=== PATIENT | female | born 1945 | race Caucasian/White ===

== ENCOUNTER 2018-07-06 09:55 | Day surgery (SDC) | payer OTHER ==
[2018-07-02 12:27] VITALS: BMI 48.3
[2018-07-06] MEDS ORDERED: PROPOFOL 20 ML ONE ×2 (12:39)
[2018-07-06 13:39] VITALS: PULSE 69; TEMP 97.8
[2018-07-06 14:36] VITALS: BP 145/74
--- NOTE | 2018-07-08 15:50 | PATH ---
Surgical Pathology Report Patient Name: JASON NÚÑEZ [facility]. Rec. #: [id number] /Age/Gender: 1945 (Age: 73) / F Account: [id number] Location: [facility] [place] Taken: 07/06/2018 Received: 07/06/2018 Reported: 07/08/2018 Physicians: Yusef Lobo M.D. Specimen(s) Received POLYP SPLENIC FLEXURE BIOPSY Clinical History History of polyps Postoperative diagnosis: Colon polyp, diverticulosis Final Diagnosis SPLENIC FLEXURE POLYP, POLYPECTOMY: HYPERPLASTIC POLYP. Electronically Signed Christina Chávez M.D. Gross Description Received in formalin, labeled "biopsy polyp splenic flexure" is a aponte, irregular portion of soft tissue measuring 0.6 cm. in greatest dimension. The specimen is submitted in toto in one cassette. 07/07/201807/07/2018
== END 2018-07-06 13:50 | disposition home or self-care (01) ==
LOC: FASU-ENDO 09:55
PROVIDERS: ATTEND Internal Medicine Gastroenterology
PROC: 0DBL8ZX Excision of Transverse Colon, Via Natural or Artificial Opening Endoscopic, Diagnostic (ICD-10-PCS; principal; 2018-07-06 12:59)
DX: Z86.010 Personal history of colon polyps (principal); K63.5 Polyp of colon; K57.30 Diverticulosis of large intestine without perforation or abscess without bleeding
CPT/HCPCS: 88305-TC

== ENCOUNTER 2023-08-18 09:34 | Day surgery (SDC) | payer OTHER ==
[2023-08-13 12:14] VITALS: BMI 40.7
[2023-08-18 09:56] VITALS: RESP 16
[2023-08-18 12:09] VITALS: TEMP 97.6
[2023-08-18 12:25] VITALS: BP 129/85; PULSE 74
== END 2023-08-18 12:34 | disposition home or self-care (01) ==
LOC: FASU-ENDO 09:34
PROVIDERS: ATTEND Internal Medicine Gastroenterology
PROC: 0DBL8ZX Excision of Transverse Colon, Via Natural or Artificial Opening Endoscopic, Diagnostic (ICD-10-PCS; 2023-08-18)
PROC: 0DBH8ZX Excision of Cecum, Via Natural or Artificial Opening Endoscopic, Diagnostic (ICD-10-PCS; principal; 2023-08-18 11:33)
DX: Z12.11 Encounter for screening for malignant neoplasm of colon (principal); D12.0 Benign neoplasm of cecum; D12.3 Benign neoplasm of transverse colon; K57.30 Diverticulosis of large intestine without perforation or abscess without bleeding; Z86.010 Personal history of colon polyps
CPT/HCPCS: 88305-TC